=== PATIENT | male | born 1995 | race Caucasian/White ===

== ENCOUNTER 2017-09-22 20:30 | Inpatient (IN) | payer OTHER ==
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
[2017-09-22] MEDS ORDERED: TDAP ADULT 0.5 ML INJ (BOOSTRIX) IM ONE (20:51)
[2017-09-22] MEDS ORDERED: LET GEL TOPICAL 1 EA SYR TP ONE (20:51)
[2017-09-22] MEDS ORDERED: OLANZapine DISINTEGR 10 MG TAB ONE (21:29)
[2017-09-22] MEDS ORDERED: OLANZapine DISINTEGR 5 MG TAB PO ONE (21:29)
[2017-09-22 21:35] LABS: PLATELET COUNT 238 10^3/uL (150-400)
[2017-09-22] MEDS ORDERED: OLANZapine DISINTEGR 10 MG TAB PO ONE ×2 (21:37→22:59)
[2017-09-22] MEDS ORDERED: LORazepam 1 MG TAB ONE (22:38)
[2017-09-22] MEDS ORDERED: LORazepam 1 MG TAB PO ONE (22:59)
[2017-09-22] MEDS ORDERED: HYDROCODONE/APAP 5/325 TAB PO ONE (22:59)
[2017-09-23] MEDS ORDERED: LORazepam 1 MG TAB PO ONE (10:53)
--- NOTE | 2017-09-23 10:55 | ASMTTCLDSP ---
[facility] Discharge Disposition Disposition: Answers: Admit Disposition Notes: Notes: Pt will be admitted to [facility] unit. Was patient given the Answers: Yes Inpatient [facility] Prohibited Belongings List while in the ED? For inpatient admission, the following Adal Albert APN psychiatrist agreed to accept patient for admission to [facility] ([facility]): Type of Hold: Answers: M1/72-hour Hold Hold initiated by: Answers: Other Notes: [facility] Date Signed: 09/23/2017 10:55 AM Electronically Signed By:Jillian Rose
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
[2017-09-23] MEDS ORDERED: LORazepam 0.5 MG TAB PO PRN (13:37)
[2017-09-23] MEDS ORDERED: ALBUTEROL 60 PUFFS/8 GM MDI IH PRN (13:41)
[2017-09-23] MEDS: IBUPROFEN 200 MG TAB PO PRN (15:27)
[2017-09-23] MEDS: LORazepam 1 MG TAB PO ONE ×2 (15:27→18:09)
[2017-09-23] MEDS: ACETAMINOPHEN 325 MG TAB PO PRN (15:32)
[2017-09-23] MEDS ORDERED: OLANZapine DISINTEGR 10 MG TAB PO ONE (16:54)
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
[2017-09-23] MEDS: BACITRACIN OINTMENT 1 PACKET TP SCH (21:01)
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
[2017-09-24] MEDS: LORazepam 1 MG TAB PO PRN ×4 (00:45→21:38)
[2017-09-24] MEDS: IBUPROFEN 200 MG TAB PO PRN ×2 (07:00→16:38)
[2017-09-24] MEDS: ACETAMINOPHEN 325 MG TAB PO PRN ×4 (07:01→22:02)
[2017-09-24] MEDS: BACITRACIN OINTMENT 1 PACKET TP SCH ×2 (07:55→16:40)
[2017-09-24] MEDS: NICOTINE POLACRILEX 2 MG GUM B PRN ×7 (07:55→21:38)
[2017-09-24] MEDS ORDERED: OLANZapine DISINTEGR 10 MG TAB PO SCH (09:00)
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
--- NOTE | 2017-09-24 15:55 | ASMTBHDC ---
Notes Note: Notes: Patient is out on the milieu and participating in groups. He is taking his medications and slept 9 hours last night. Patient has grandiose thinking and believes that every minute he is in the hospital he is not out saving lives. Patient had been living with his parents and was kicked out due to his behavior. He said that he stayed with a friend this past week. He said that he can stay with his parents now. Date Signed: 09/24/2017 03:54 PM Electronically Signed By:Farrah Cifuentes
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
[2017-09-24] MEDS: OLANZapine DISINTEGR 10 MG TAB PO SCH (19:24)
[2017-09-24] MEDS: BACITRACIN OINTMENT 1 PACKET TP PRN (21:38)
[2017-09-25] MEDS: NICOTINE POLACRILEX 2 MG GUM B PRN ×5 (00:11→22:08)
[2017-09-25] MEDS: MAG HYDROX/AL HYDROX/SIMETH 30 ML UDCUP PO PRN ×2 (03:31→09:25)
[2017-09-25] MEDS: IBUPROFEN 200 MG TAB PO PRN ×3 (03:32→21:17)
[2017-09-25] MEDS: BACITRACIN OINTMENT 1 PACKET TP PRN ×3 (03:43→14:21)
[2017-09-25] MEDS: LORazepam 1 MG TAB PO PRN ×3 (04:03→16:09)
[2017-09-25] MEDS: ACETAMINOPHEN 325 MG TAB PO PRN ×3 (05:44→22:09)
[2017-09-25] MEDS ORDERED: NICOTINE 7 MG/24 HR PATCH TD SCH ×2 (09:00→13:27)
[2017-09-25] MEDS: MAGNESIUM HYDROXIDE 30 ML UDCUP PO PRN (09:25)
[2017-09-25] MEDS: ALBUTEROL 60 PUFFS/8 GM MDI IH PRN (09:45)
[2017-09-25] MEDS: OLANZapine 5 MG TAB PO PRN (13:52)
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
--- NOTE | 2017-09-25 15:16 | ASMTBHDC ---
Notes Note: Notes: Patient slept 5 hours last night. Patient wanted it noted that he is being polite, going to groups, and not talking fast. 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 He went on and became tearful, to say that "I only give to others, I have nothing." Patient said that he can not tolerate any mood stabilizers That he likes Ativan and Vivance. He continues to have pressured speech and has good hygiene. Date Signed: 09/25/2017 03:15 PM Electronically Signed By:Farrah Cifuentes
[2017-09-25] MEDS: OLANZapine DISINTEGR 10 MG TAB PO SCH (18:34)
[2017-09-26] MEDS: BACITRACIN OINTMENT 1 PACKET TP PRN ×4 (00:52→22:38)
[2017-09-26] MEDS: OLANZapine 5 MG TAB PO PRN ×2 (01:01→23:58)
[2017-09-26] MEDS: NICOTINE POLACRILEX 2 MG GUM B PRN ×2 (04:37→06:40)
[2017-09-26] MEDS: LORazepam 1 MG TAB PO PRN ×5 (06:39→21:59)
[2017-09-26] MEDS: ACETAMINOPHEN 325 MG TAB PO PRN ×2 (06:47→09:57)
[2017-09-26] MEDS: OLANZapine DISINTEGR 10 MG TAB PO SCH ×2 (09:57→20:55)
[2017-09-26] MEDS: IBUPROFEN 200 MG TAB PO PRN ×2 (09:59→22:38)
[2017-09-26] MEDS: MAG HYDROX/AL HYDROX/SIMETH 30 ML UDCUP PO PRN (10:00)
[2017-09-26] MEDS: MAGNESIUM HYDROXIDE 30 ML UDCUP PO PRN (10:01)
--- NOTE | 2017-09-26 10:55 | PDMN ---
Medical Necessity Medical necessity: [facility] [place] [id number], Bipolar Disorders, Adult: Inpatient Care, 4 days: M1 hold, bipolar 1 disorder, uncontrolled, current kevan, presenting w/ problems of grandiosity, high-risk behavior, high suicide risk.
--- NOTE | 2017-09-26 14:36 | SOAPPROG ---
SOAP Progress Note Assessment/Plan: Assessment: Bipolar I disorder. Current kevan. No improvement noted. (see subjective/ objective note). Patient could benefit from continued inpatient hospitalization for crisis stabilization, safety, and medication evaluation. Plan: Review psychotropic medication treatment informed consent and recommendations. After reviewing treatment options, risk and benefits of treatment, patient agrees to continue medications with the following changes: Zyprexa 10 mg po BID. No other medication changes at this time as more time is needed to determine ongoing tolerability and efficacy. Plan is to continue to observe patient for response and side effects from medications, and ongoing monitoring and evaluation. Before making any medication changes, this interviewer and rn primary care to confer with patients split leather mosser. Next steps are for patient to meet with resident care aide to plan a safe discharge plan and establish outpatient services for ongoing treatment. Consider discharge Tuesday if patient is in stable condition, safe, and has a safe discharge plan. PSYCHOTROPIC MEDICATION TREATMENT INFORMED CONSENT and RECOMMENDATIONS: Review nature of condition, diagnosis, and prognosis. Review nature and purpose of psychotropic medication treatment. Review type of psychotropic medications being ordered. Review risk and benefits of psychotropic medication treatment. Review probable length of time patient will need to take medications. Review risk and benefits of not undergoing psychotropic medication treatment. Review alternative treatments to psychotropic medications. Review psychotropic medications contraindications, drug-drug interactions, side effects, and importance of reporting any side effects to a psychiatric provider or nurse during inpatient hospitalization, and upon discharge to patients psychiatric outpatient provider, primary care provider, or other health home health care respiratory therapist. Review importance of asking a nurse, psychiatric provider, or primary care provider any questions or problems concerning the psychotropic medications. Verify patient understands the information that has been provided, and understands, accepts, and agrees to psychotropic medications. Review patients safety plan and importance of patient to report to staff while hospitalized if patient is ever a danger to self/others, or unable to care for self, and upon discharge, the importance for patient to contact [facility] or [facility], or go to the nearest emergency room, if patient is ever a danger to self/others, or unable to care for self. Recommend that upon discharge patient establish medication management treatment with a psychiatric provider, establishes routine therapy appointments, and follow-up with primary care provider. Verify patient understands and agrees to these recommendations. 09/26/17 14:34 Subjective: Following up with patient for evaluation of psychosis and safety. Patient reports, Man, I am doing awesome. Ready to discharge so I can start changing the world. Patient expresses the following psychiatric symptoms none, and reports has improved since admission. Patient states he is taking medications as prescribed, tolerating medications with no report of side effects. Patient states she has been attending groups. Patient describes having a difficult time sleeping last night because he has so much on his mind including all the goals he has to accomplish to change the world. The patient describes his appetite as good, and describes eating all meals. Patient reports his mood as awesome, perfect and states this is an improvement since admission. Patient denies SI/HI, A/V hallucinations, and delusions. Patient reports he has no idea why is still hospitalized, and states he is not sure why he would need to be on medications for any length of time. Objective: Vital Signs Temp Pulse Resp BP Pulse Ox 36.6 C 91 16 113/81 H 98 09/25/17 02:18 09/26/17 05:55 09/26/17 05:55 09/26/17 05:55 09/26/17 05:55 Treatment team report: Consulted with treatment team staff for update on patients progress in treatment. Nurses report patient is taking medications as prescribed with no report of side effects. Nurses report patient has expressed the following psychiatric symptoms none. Staff reports patient slept 3 hours last night. Patient is eating all meals. Patient denies SI/HI, A/V hallucinations, delusions, and has expressed no psychiatric symptoms since her admission. Staff reports they have noticed patient has not improved since his admission noting: decreased need for sleep, hyperactivity, hypertalkative, and grandiose. The patient is a well-nourished, well-developed, male, looking chronological age. Attire is appropriate, hospital garb, and is neat and clean. Grooming status is appropriate. Ambulation is independent. Gait is normal and coordinated. Posture is normal. Eye contact is excessive and staring. Motor activity is overactive. Attitude is uncooperative and defensive. Patient appears disinterested, distracted, and does not relate well to this interviewer. Language production is spontaneous. Rate is rapid, pressured. Latency of response is shortened, with irritable tone and inappropriate high volume, hypertalkative. Articulation is clear. Patient reports mood as awesome with expansive and inappropriate affect. Patients thought process is non-linear and illogical, with loose associations, tangential thought. Patient does not report suicidal/homicidal thoughts, ideas, or plans. Patient denies auditory, visual hallucinations. Patient denies delusions. Patient does not appear to be attending to internal stimuli. Patient is oriented to person, place, time, and situation. Attention and concentration are poor. Insight is poor. Judgment is impaired. No evidence of gross cognitive dysfunction at any point during the interview, and no evidence of apparent dysfunction in recent or remote memory noted. Patient does not report undesirable side effects from the medications. - Time Spent With Patient Time Spent With Patient: 30 minutes, met with patient individually. - Pending Discharge Pending Discharge Within 24 Hours: No Pending Discharge Within 48 Hours: No ICD10 Worksheet Patient Problems: Problems Problem Status Onset Bipolar 1 disorder, manic, moderate Acute Facial abrasion Acute Nasal bones, closed fracture Acute
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
[2017-09-26] MEDS: LITHIUM CARBONATE ER 300 MG TAB PO SCH (20:55)
[2017-09-26] MEDS ORDERED: LITHIUM CARBONATE ER 300 MG TAB PO SCH (21:00)
[2017-09-27] MEDS: MAG HYDROX/AL HYDROX/SIMETH 30 ML UDCUP PO PRN ×2 (04:17→19:14)
[2017-09-27] MEDS: MAGNESIUM HYDROXIDE 30 ML UDCUP PO PRN (04:17)
[2017-09-27] MEDS: LORazepam 1 MG TAB PO PRN ×2 (04:17→18:43)
[2017-09-27] MEDS: ACETAMINOPHEN 325 MG TAB PO PRN ×2 (04:22→13:19)
[2017-09-27] MEDS: NICOTINE 21 MG/24 HR PATCH TD SCH (04:23)
--- NOTE | 2017-09-27 08:13 | SOAPPROG ---
SOAP Progress Note Assessment/Plan: Assessment: Bipolar I Disorder. Current kevan. No improvement noted. (see subjective/ objective note). Patient could benefit from continued inpatient hospitalization for crisis stabilization, safety, and medication evaluation. Plan: Review psychotropic medication treatment informed consent and recommendations. After reviewing treatment options, risk and benefits of treatment, patient agrees to continue medications with the following changes. No medication changes at this time as more time is needed to determine ongoing tolerability and efficacy. Plan is to continue to observe patient for response and side effects from medications, and ongoing monitoring and evaluation. Before making any medication changes, this interviewer and director career to confer with patients station cook. Next steps are for patient to meet with day care attendant to plan a safe discharge plan and establish outpatient services for ongoing treatment. Consider discharge next week if patient is in stable condition, safe , and has a safe discharge plan. PSYCHOTROPIC MEDICATION TREATMENT INFORMED CONSENT and RECOMMENDATIONS: Review nature of condition, diagnosis, and prognosis. Review nature and purpose of psychotropic medication treatment. Review type of psychotropic medications being ordered. Review risk and benefits of psychotropic medication treatment. Review probable length of time patient will need to take medications. Review risk and benefits of not undergoing psychotropic medication treatment. Review alternative treatments to psychotropic medications. Review psychotropic medications contraindications, drug-drug interactions, side effects, and importance of reporting any side effects to a psychiatric provider or nurse during inpatient hospitalization, and upon discharge to patients psychiatric outpatient provider, primary care provider, or other health grounds caretaker. Review importance of asking a nurse, psychiatric provider, or primary care provider any questions or problems concerning the psychotropic medications. Verify patient understands the information that has been provided, and understands, accepts, and agrees to psychotropic medications. Review patients safety plan and importance of patient to report to staff while hospitalized if patient is ever a danger to self/others, or unable to care for self, and upon discharge, the importance for patient to contact [facility] [place] [facility] or [facility], or go to the nearest emergency room, if patient is ever a danger to self/others, or unable to care for self. Recommend that upon discharge patient establish medication management treatment with a psychiatric provider, establishes routine therapy appointments, and follow-up with primary care provider. Verify patient understands and agrees to these recommendations. 09/27/17 08:13 Subjective: Following up with patient for evaluation of psychosis and safety. Patient reports, Anxiety is really high. Patient expresses the following psychiatric symptoms none, and reports has improved since admission. Patient states he is taking medications as prescribed, tolerating medications with no report of side effects. Patient states she has been attending groups. Patient describes having a difficult time sleeping. The patient describes his appetite as good, and describes eating all meals. Patient reports his mood as chillin and states this is an improvement since admission. Patient denies SI/HI, A/V hallucinations, and delusions. Patient reports he has no idea why is still hospitalized, and states he is not sure why he would need to be on medications for any length of time. Patient requests Vyvanse to speed up his thoughts and make him not talk as fast. Patient states he took Vyvanse in college and it was beneficial getting good grades in school. 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 Patient states that video-graphic memory is better than photographic memory. Objective: Vital Signs Temp Pulse Resp BP Pulse Ox 36.4 C 92 16 127/73 H 92 09/27/17 04:37 09/27/17 04:37 09/27/17 04:37 09/27/17 04:37 09/27/17 04:37 Treatment team report: Consulted with treatment team staff for update on patients progress in treatment. Nurses report patient is taking medications as prescribed with no report of side effects. Nurses report patient has expressed the following psychiatric symptoms none. Staff reports patient slept 3 hours last night. Patient is eating all meals. Patient denies SI/HI, A/V hallucinations, delusions, and has expressed no psychiatric symptoms since her admission. Staff reports they have noticed patient has not improved since his admission noting: decreased need for sleep, hyperactivity, hypertalkative, and grandiose. The patient is a well-nourished, well-developed, male, looking chronological age. Attire is appropriate, hospital garb, and is neat and clean. Grooming status is appropriate. Ambulation is independent. Gait is normal and coordinated. Posture is normal. Eye contact is excessive and staring. Motor activity is overactive. Attitude is uncooperative and defensive. Patient appears disinterested, distracted, and does not relate well to this interviewer. Language production is spontaneous. Rate is rapid, pressured. Latency of response is shortened, with irritable tone and inappropriate high volume, hypertalkative. Articulation is clear. Patient reports mood as awesome with expansive and inappropriate affect. Patients thought process is non-linear and illogical, with loose associations, tangential thought. Patient does not report suicidal/homicidal thoughts, ideas, or plans. Patient denies auditory, visual hallucinations. Patient denies delusions. Patient does not appear to be attending to internal stimuli. Patient is oriented to person, place, time, and situation. Attention and concentration are poor. Insight is poor. Judgment is impaired. No evidence of gross cognitive dysfunction at any point during the interview, and no evidence of apparent dysfunction in recent or remote memory noted. Patient does not report undesirable side effects from the medications. - Time Spent With Patient Time Spent With Patient: 30 minutes, met with patient individually. - Pending Discharge Pending Discharge Within 24 Hours: No Pending Discharge Within 48 Hours: No ICD10 Worksheet Patient Problems: Problems Problem Status Onset Bipolar 1 disorder, manic, moderate Acute Facial abrasion Acute Nasal bones, closed fracture Acute
[2017-09-27] MEDS: LITHIUM CARBONATE ER 300 MG TAB PO SCH ×2 (08:25→18:39)
[2017-09-27] MEDS: BACITRACIN OINTMENT 1 PACKET TP PRN ×3 (08:25→18:01)
[2017-09-27] MEDS: OLANZapine DISINTEGR 10 MG TAB PO SCH ×2 (08:25→18:40)
[2017-09-27] MEDS: IBUPROFEN 200 MG TAB PO PRN (08:25)
[2017-09-27] MEDS ORDERED: LORazepam 1 MG TAB PO PRN ×3 (08:43→17:25)
[2017-09-27] MEDS ORDERED: LITHIUM CARBONATE ER 300 MG TAB PO SCH (09:00)
[2017-09-27] MEDS: ALBUTEROL 60 PUFFS/8 GM MDI IH PRN ×2 (13:19→18:45)
[2017-09-27] MEDS: NICOTINE POLACRILEX 2 MG GUM B PRN ×2 (13:20→17:52)
[2017-09-28] MEDS: ACETAMINOPHEN 325 MG TAB PO PRN ×2 (04:28→14:31)
[2017-09-28] MEDS: BACITRACIN OINTMENT 1 PACKET TP PRN ×4 (04:29→21:11)
[2017-09-28] MEDS: MAGNESIUM HYDROXIDE 30 ML UDCUP PO PRN (04:29)
[2017-09-28] MEDS: MAG HYDROX/AL HYDROX/SIMETH 30 ML UDCUP PO PRN ×2 (04:34→16:37)
[2017-09-28] MEDS: LORazepam 1 MG TAB PO PRN ×3 (06:15→16:37)
[2017-09-28] MEDS: NICOTINE 21 MG/24 HR PATCH TD SCH ×2 (07:07→14:32)
[2017-09-28] MEDS: LITHIUM CARBONATE ER 300 MG TAB PO SCH ×2 (08:41→19:39)
[2017-09-28] MEDS: OLANZapine DISINTEGR 10 MG TAB PO SCH ×2 (08:41→19:39)
--- NOTE | 2017-09-28 08:43 | SOAPPROG ---
SOAP Progress Note Assessment/Plan: Assessment: Bipolar I Disorder. Current kevan. No improvement noted. (see subjective/ objective note). Patient could benefit from continued inpatient hospitalization for crisis stabilization, safety, and medication evaluation. Plan: Review psychotropic medication treatment informed consent and recommendations. After reviewing treatment options, risk and benefits of treatment, patient agrees to continue medications with the following changes. No medication changes at this time as more time is needed to determine ongoing tolerability and efficacy. Plan is to continue to observe patient for response and side effects from medications, and ongoing monitoring and evaluation. 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 Next steps are for patient to meet with animal caretaker supervisor to plan a safe discharge plan and establish outpatient services for ongoing treatment. Consider discharge next week if patient is in stable condition, safe , and has a safe discharge plan. PSYCHOTROPIC MEDICATION TREATMENT INFORMED CONSENT and RECOMMENDATIONS: Review nature of condition, diagnosis, and prognosis. Review nature and purpose of psychotropic medication treatment. Review type of psychotropic medications being ordered. Review risk and benefits of psychotropic medication treatment. Review probable length of time patient will need to take medications. Review risk and benefits of not undergoing psychotropic medication treatment. Review alternative treatments to psychotropic medications. Review psychotropic medications contraindications, drug-drug interactions, side effects, and importance of reporting any side effects to a psychiatric provider or nurse during inpatient hospitalization, and upon discharge to patients psychiatric outpatient provider, primary care provider, or other health progressive care manager. Review importance of asking a nurse, psychiatric provider, or primary care provider any questions or problems concerning the psychotropic medications. Verify patient understands the information that has been provided, and understands, accepts, and agrees to psychotropic medications. Review patients safety plan and importance of patient to report to staff while hospitalized if patient is ever a danger to self/others, or unable to care for self, and upon discharge, the importance for patient to contact [place] [facility] or 1, or go to the nearest emergency room, if patient is ever a danger to self/others, or unable to care for self. Recommend that upon discharge patient establish medication management treatment with a psychiatric provider, establishes routine therapy appointments, and follow-up with primary care provider. Verify patient understands and agrees to these recommendations. 09/28/17 08:43 Subjective: Following up with patient for evaluation of kevan and safety. Patient reports, "Feel like I have improved exponentially since I've been here. Mentally I feel like this is a 180 flip compared to being at [facility] a year ago, it is much better here. You guys are involving me in my treatment. You guys dont just jam pills down my throat you allow me to have a say in my treatment." Patient expresses the following psychiatric symptoms none, and reports has improved since admission. Patient states he is taking medications as prescribed, tolerating medications with no report of side effects. Patient states she has been attending groups. Patient describes sleeping well last night, 9 hours. The patient describes his appetite as good, and describes eating all meals. Patient reports his mood as absolutely fantastic and states this is an improvement since admission. Patient denies SI/HI, A/V hallucinations, and delusions. Patient reports he has no idea why is still hospitalized as he feels completely normal. Patient reports he has no problem discharging homeless. Patient describes he can live out of backpack because he has video- graphic memory. Patient states all he needs is a backpack and 3 liters of water. Patient states he wouldn't be homeless, he would be "home free." Objective: Vital Signs Temp Pulse Resp BP Pulse Ox 36.6 C 101 H 16 122/57 H 96 09/28/17 06:00 09/28/17 06:00 09/28/17 06:00 09/28/17 06:00 09/28/17 06:00 Treatment team report: Consulted with treatment team staff for update on patients progress in treatment. Nurses report patient is taking medications as prescribed with no report of side effects. Nurses report patient has expressed the following psychiatric symptoms none. Staff reports patient slept 4 hours last night. Patient is eating all meals. Patient denies SI/HI, A/V hallucinations, delusions, and has expressed no psychiatric symptoms since his admission. Staff reports they have noticed patient has not improved since his admission noting: decreased need for sleep, hyperactivity, hypertalkative, and grandiose. The patient is a well-nourished, well-developed, male, looking chronological age. Attire is appropriate, hospital garb, and is neat and clean. Grooming status is appropriate. Ambulation is independent. Gait is normal and coordinated. Posture is normal. Eye contact is excessive and staring. Motor activity is overactive. Attitude is cooperative and friendly. Patient appears distracted, and does not relate well to this interviewer. Language production is spontaneous. Rate is rapid, pressured. Latency of response is shortened, with irritable tone and inappropriate high volume, hypertalkative. Articulation is clear. Patient reports mood as absolutely fantastic with expansive and inappropriate affect. Patients thought process is non-linear and illogical, with loose associations, tangential thought. Patient does not report suicidal/homicidal thoughts, ideas, or plans. Patient denies auditory, visual hallucinations. Patient denies delusions. Patient does not appear to be attending to internal stimuli. Patient is oriented to person, place, time, and situation. Attention and concentration are poor. Insight is poor. Judgment is impaired. No evidence of gross cognitive dysfunction at any point during the interview, and no evidence of apparent dysfunction in recent or remote memory noted. Patient does not report undesirable side effects from the medications. - Time Spent With Patient Time Spent With Patient: 30 minutes, met with patient individually. - Pending Discharge Pending Discharge Within 24 Hours: No Pending Discharge Within 48 Hours: No ICD10 Worksheet Patient Problems: Problems Problem Status Onset Bipolar 1 disorder, manic, moderate Acute Facial abrasion Acute Nasal bones, closed fracture Acute
[2017-09-28] MEDS: NICOTINE POLACRILEX 2 MG GUM B PRN ×2 (09:05→19:19)
[2017-09-28] MEDS: ALBUTEROL 60 PUFFS/8 GM MDI IH PRN ×2 (12:04→19:19)
[2017-09-28] MEDS: OLANZapine 5 MG TAB PO PRN (14:37)
[2017-09-29] MEDS: ALBUTEROL 60 PUFFS/8 GM MDI IH PRN ×3 (05:02→18:53)
[2017-09-29] MEDS: MAG HYDROX/AL HYDROX/SIMETH 30 ML UDCUP PO PRN ×2 (05:02→20:59)
[2017-09-29] MEDS: ACETAMINOPHEN 325 MG TAB PO PRN ×4 (05:02→18:53)
[2017-09-29] MEDS: NICOTINE 21 MG/24 HR PATCH TD SCH (08:30)
[2017-09-29] MEDS: OLANZapine DISINTEGR 10 MG TAB PO SCH ×2 (08:31→18:54)
[2017-09-29] MEDS: LITHIUM CARBONATE ER 300 MG TAB PO SCH ×2 (08:32→18:54)
[2017-09-29] MEDS: BACITRACIN OINTMENT 1 PACKET TP PRN ×2 (08:48→18:54)
[2017-09-29] MEDS: NICOTINE POLACRILEX 2 MG GUM B PRN ×5 (08:54→20:09)
--- NOTE | 2017-09-29 08:56 | SOAPPROG ---
SOAP Progress Note Assessment/Plan: Assessment: Bipolar I Disorder. Current kevan. Slight improvement noted. (see subjective/ objective note). Patient could benefit from continued inpatient hospitalization for crisis stabilization, safety, and medication evaluation. Plan: Review psychotropic medication treatment informed consent and recommendations. After reviewing treatment options, risk and benefits of treatment, patient agrees to continue medications with the following changes. No medication changes at this time as more time is needed to determine ongoing tolerability and efficacy. [place] level to be drawn 09/30/17 at 0600. Plan is to continue to observe patient for response and side effects from medications, and ongoing monitoring and evaluation. Before making any medication changes, this interviewer and women's health care nurse practitioner to confer with patients railroad purchasing agent. Next steps are for patient to meet with day care home provider to plan a safe discharge plan and establish outpatient services for ongoing treatment. Consider discharge next week if patient is in stable condition, safe, and has a safe discharge plan. PSYCHOTROPIC MEDICATION TREATMENT INFORMED CONSENT and RECOMMENDATIONS: Review nature of condition, diagnosis, and prognosis. Review nature and purpose of psychotropic medication treatment. Review type of psychotropic medications being ordered. Review risk and benefits of psychotropic medication treatment. Review probable length of time patient will need to take medications. Review risk and benefits of not undergoing psychotropic medication treatment. Review alternative treatments to psychotropic medications. Review psychotropic medications contraindications, drug-drug interactions, side effects, and importance of reporting any side effects to a psychiatric provider or nurse during inpatient hospitalization, and upon discharge to patients psychiatric outpatient provider, primary care provider, or other health animal care taker. Review importance of asking a nurse, psychiatric provider, or primary care provider any questions or problems concerning the psychotropic medications. Verify patient understands the information that has been provided, and understands, accepts, and agrees to psychotropic medications. Review patients safety plan and importance of patient to report to staff while hospitalized if patient is ever a danger to self/others, or unable to care for self, and upon discharge, the importance for patient to contact [place] [facility] or [facility], or go to the nearest emergency room, if patient is ever a danger to self/others, or unable to care for self. Recommend that upon discharge patient establish medication management treatment with a psychiatric provider, establishes routine therapy appointments, and follow-up with primary care provider. Verify patient understands and agrees to these recommendations. 09/29/17 08:55 Subjective: Following up with patient for evaluation of kevan and safety. Patient reports, "I woke up today feeling the most mental clarity ever, felt like I have been on a roller coaster in my mind the last two years, and finally feeling better. Thought I could do this alone, but now realize I need medications. Was always against lithium, but now realize I need to be on it." Patient expresses the following psychiatric symptoms none, and reports has improved since admission and states, "I am stable and completely ready to go." Patient states he is taking medications as prescribed, tolerating medications with no report of side effects. Patient states she has been attending groups. Patient describes sleeping well last night, 9 hours. The patient describes his appetite as good, and describes eating all meals. Patient reports his mood as "completely at peace" and states this is an improvement since admission. Patient denies SI/HI , A/V hallucinations, and delusions. 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 States he already has contacts in [place] including Traci Phelan. Patient reports that every minute he is in here another life is not being saved , and he wants to get out of here and change the world. Patient states this interviewer is talking to someone that is about to be famous. 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 He reports he can do all of this because he has a video-graphic memory. Objective: Vital Signs Temp Pulse Resp BP Pulse Ox 36.3 C 87 14 128/77 H 96 09/29/17 05:55 09/29/17 05:55 09/29/17 05:55 09/29/17 05:55 09/29/17 05:55 Treatment team report: Consulted with treatment team staff for update on patients progress in treatment. Nurses report patient is taking medications as prescribed with no report of side effects. Nurses report patient has expressed the following psychiatric symptoms none. Staff reports patient slept 7 hours last night. Patient is eating all meals. Patient denies SI/HI, A/V hallucinations, delusions, and has expressed no psychiatric symptoms since his admission. Staff reports they have noticed patient has improved since his admission noting: improved sleep. Patient continues to be hyperactive, hypertalkative, and grandiose. The patient is a well-nourished, well-developed, male, looking chronological age. Attire is appropriate, hospital garb, and is neat and clean. Grooming status is appropriate. Ambulation is independent. Gait is normal and coordinated. Posture is normal. Eye contact is excessive and staring. Motor activity is overactive. Attitude is cooperative and friendly. Patient appears distracted, and does not relate well to this interviewer. Language production is spontaneous. Rate is rapid, pressured. Latency of response is shortened, with irritable tone and inappropriate high volume, hypertalkative. Articulation is clear. Patient reports mood as completely at peace with expansive and inappropriate affect. Patients thought process is non-linear and illogical, with loose associations, tangential thought. Patient does not report suicidal/homicidal thoughts, ideas, or plans. Patient denies auditory, visual hallucinations. Patient denies delusions. Patient does not appear to be attending to internal stimuli. Patient is oriented to person, place, time, and situation. Attention and concentration are poor. Insight is poor. Judgment is impaired. No evidence of gross cognitive dysfunction at any point during the interview, and no evidence of apparent dysfunction in recent or remote memory noted. Patient does not report undesirable side effects from the medications. - Time Spent With Patient Time Spent With Patient: 30 minutes, met with patient individually. - Pending Discharge Pending Discharge Within 24 Hours: No Pending Discharge Within 48 Hours: No ICD10 Worksheet Patient Problems: Problems Problem Status Onset Bipolar 1 disorder, manic, moderate Acute Facial abrasion Acute Nasal bones, closed fracture Acute
[2017-09-29] MEDS: LORazepam 1 MG TAB PO PRN ×3 (10:07→20:09)
[2017-09-29] MEDS: OLANZapine 5 MG TAB PO PRN (11:24)
--- NOTE | 2017-09-29 14:25 | ASMTBHDC ---
Notes Note: Notes: CC was able to confirm follow up appts with out-side provider (PCP) for meds. Dr. Filiberto Bailon (PCP) [address] [place] [address] [phone] Follow up Appt: October 06 at 1:30pm Additionally, sent over referral for out-patient therapy via [facility]; waiting to hear back with Appointment time and date, etc. Client presents as manic, engectic with rapid speach. CC will re evaulte tomorrow. Probable discharge early next week. Date Signed: 09/29/2017 02:24 PM Electronically Signed By:Maximiliano Birch
[2017-09-30] MEDS: ALBUTEROL 60 PUFFS/8 GM MDI IH PRN ×3 (05:04→14:48)
[2017-09-30] MEDS: BACITRACIN OINTMENT 1 PACKET TP PRN ×4 (05:04→19:58)
[2017-09-30] MEDS: ACETAMINOPHEN 325 MG TAB PO PRN ×4 (05:04→18:37)
[2017-09-30] MEDS: MAG HYDROX/AL HYDROX/SIMETH 30 ML UDCUP PO PRN ×3 (05:05→18:38)
[2017-09-30] MEDS: NICOTINE POLACRILEX 2 MG GUM B PRN ×6 (06:06→20:31)
[2017-09-30] MEDS: LITHIUM CARBONATE ER 300 MG TAB PO SCH ×2 (07:54→19:58)
[2017-09-30] MEDS: OLANZapine 5 MG TAB PO PRN ×2 (07:54→11:37)
[2017-09-30] MEDS: NICOTINE 21 MG/24 HR PATCH TD SCH (07:54)
[2017-09-30] MEDS: OLANZapine DISINTEGR 10 MG TAB PO SCH ×2 (07:55→19:58)
[2017-09-30] MEDS: LORazepam 1 MG TAB PO PRN ×4 (08:00→21:11)
--- NOTE | 2017-09-30 11:50 | SOAPPROG ---
SOAP Progress Note Assessment/Plan: Assessment: Bipolar I Disorder. Current kevan. Slight improvement noted. (see subjective/ objective note). Patient could benefit from continued inpatient hospitalization for crisis stabilization, safety, and medication evaluation. Plan: Review psychotropic medication treatment informed consent and recommendations. After reviewing treatment options, risk and benefits of treatment, patient agrees to continue medications with the following changes: increase [place] HS to 900 mg. [place] level ordered for Tuesday 06. No other medication changes at this time as more time is needed to determine ongoing tolerability and efficacy. Plan is to continue to observe patient for response and side effects from medications, and ongoing monitoring and evaluation. Before making any medication changes, this interviewer and animal daycare provider to confer with patients junior bookkeeper. Next steps are for patient to meet with intensive care anaesthetist to plan a safe discharge plan and establish outpatient services for ongoing treatment. Consider discharge next week if patient is in stable condition, safe , and has a safe discharge plan. PSYCHOTROPIC MEDICATION TREATMENT INFORMED CONSENT and RECOMMENDATIONS: Review nature of condition, diagnosis, and prognosis. Review nature and purpose of psychotropic medication treatment. Review type of psychotropic medications being ordered. Review risk and benefits of psychotropic medication treatment. Review probable length of time patient will need to take medications. Review risk and benefits of not undergoing psychotropic medication treatment. Review alternative treatments to psychotropic medications. Review psychotropic medications contraindications, drug-drug interactions, side effects, and importance of reporting any side effects to a psychiatric provider or nurse during inpatient hospitalization, and upon discharge to patients psychiatric outpatient provider, primary care provider, or other health child care aide. Review importance of asking a nurse, psychiatric provider, or primary care provider any questions or problems concerning the psychotropic medications. Verify patient understands the information that has been provided, and understands, accepts, and agrees to psychotropic medications. Review patients safety plan and importance of patient to report to staff while hospitalized if patient is ever a danger to self/others, or unable to care for self, and upon discharge, the importance for patient to contact [facility] [place] [facility] or [facility], or go to the nearest emergency room, if patient is ever a danger to self/others, or unable to care for self. Recommend that upon discharge patient establish medication management treatment with a psychiatric provider, establishes routine therapy appointments, and follow-up with primary care provider. Verify patient understands and agrees to these recommendations. 09/30/17 11:49 Subjective: Following up with patient for evaluation of kevna and safety. Patient reports, "Starting to feel slowed down, don't like that feeling." Patient expresses the following psychiatric symptoms none, and reports has improved since admission and states, "feel like my life has completely flipped." Patient states he is taking medications as prescribed, tolerating medications with no report of side effects. Patient states she has been attending groups. Patient describes sleeping well last night, 9 hours. The patient describes his appetite as good, and describes eating all meals. Patient reports his mood as "chillaxed" and states this is an improvement since admission. Patient denies SI/HI, A/V hallucinations, and delusions. 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 Plans to be to [place] by end of summer, link up with connections in [place] (Traci Phelan, assistant store manager of [email or web address]). 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 States he can sing every single music genre. 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 Patient states the [facility] has contacted him and asked him to the Batman for the [facility], and states that [place] has agreed to equip him with all the tools and gadget he needs to be the Batman and go around and fight crime in the [facility]. Objective: Vital Signs Temp Pulse Resp BP Pulse Ox 36.5 C 106 H 12 127/64 H 96 09/30/17 06:00 09/30/17 06:00 09/30/17 06:00 09/30/17 06:00 09/30/17 06:00 Treatment team report: Consulted with treatment team staff for update on patients progress in treatment. Nurses report patient is taking medications as prescribed with no report of side effects. Nurses report patient has expressed the following psychiatric symptoms none. Staff reports patient slept 6 hours last night. Patient is eating all meals. Patient denies SI/HI, A/V hallucinations, delusions, and has expressed no psychiatric symptoms since his admission. Staff reports they have noticed patient has improved since his admission noting: improved sleep. Patient continues to be hyperactive, hypertalkative, and grandiose. The patient is a well-nourished, well-developed, male, looking chronological age. Attire is appropriate, hospital garb, and is neat and clean. Grooming status is appropriate. Ambulation is independent. Gait is normal and coordinated. Posture is normal. Eye contact is excessive and staring. Motor activity is overactive. Attitude is cooperative and friendly. Patient appears distracted, and does not relate well to this interviewer. Language production is spontaneous. Rate is rapid, pressured. Latency of response is shortened, with irritable tone and inappropriate high volume, hypertalkative. Articulation is clear. Patient reports mood as completely at peace with expansive and inappropriate affect. Patients thought process is non-linear and illogical, with loose associations, tangential thought. Patient does not report suicidal/homicidal thoughts, ideas, or plans. Patient denies auditory, visual hallucinations. Patient denies delusions. Patient does not appear to be attending to internal stimuli. Patient is oriented to person, place, time, and situation. Attention and concentration are poor. Insight is poor. Judgment is impaired. No evidence of gross cognitive dysfunction at any point during the interview, and no evidence of apparent dysfunction in recent or remote memory noted. Patient does not report undesirable side effects from the medications. - Time Spent With Patient Time Spent With Patient: 30 minutes, met with patient individually. - Pending Discharge Pending Discharge Within 24 Hours: No Pending Discharge Within 48 Hours: No ICD10 Worksheet Patient Problems: Problems Problem Status Onset Bipolar 1 disorder, manic, moderate Acute Facial abrasion Acute Nasal bones, closed fracture Acute
[2017-09-30] MEDS ORDERED: LITHIUM CARBONATE ER 300 MG TAB PO SCH (21:00)
[2017-10-01] MEDS: ALBUTEROL 60 PUFFS/8 GM MDI IH PRN ×2 (05:28→13:28)
[2017-10-01] MEDS: ACETAMINOPHEN 325 MG TAB PO PRN ×2 (05:29→20:07)
[2017-10-01] MEDS: BACITRACIN OINTMENT 1 PACKET TP PRN (05:30)
[2017-10-01] MEDS: LORazepam 1 MG TAB PO PRN ×4 (05:31→16:53)
[2017-10-01] MEDS: MAG HYDROX/AL HYDROX/SIMETH 30 ML UDCUP PO PRN ×2 (05:31→05:48)
[2017-10-01] MEDS: NICOTINE POLACRILEX 2 MG GUM B PRN ×3 (07:32→13:28)
[2017-10-01] MEDS: OLANZapine DISINTEGR 10 MG TAB PO SCH ×2 (08:06→20:06)
[2017-10-01] MEDS: LITHIUM CARBONATE ER 300 MG TAB PO SCH ×2 (08:06→20:06)
[2017-10-01] MEDS: NICOTINE 21 MG/24 HR PATCH TD SCH (08:07)
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
[2017-10-02] MEDS: MAG HYDROX/AL HYDROX/SIMETH 30 ML UDCUP PO PRN ×2 (03:23→10:28)
[2017-10-02] MEDS: LORazepam 1 MG TAB PO PRN ×3 (03:24→19:06)
[2017-10-02] MEDS: ACETAMINOPHEN 325 MG TAB PO PRN ×3 (03:24→16:14)
[2017-10-02] MEDS: NICOTINE POLACRILEX 2 MG GUM B PRN ×5 (03:25→16:15)
[2017-10-02] MEDS: ALBUTEROL 60 PUFFS/8 GM MDI IH PRN ×2 (03:28→08:42)
[2017-10-02] MEDS: BACITRACIN OINTMENT 1 PACKET TP PRN (04:28)
[2017-10-02] MEDS: LITHIUM CARBONATE ER 300 MG TAB PO SCH ×2 (08:32→17:39)
[2017-10-02] MEDS: OLANZapine DISINTEGR 10 MG TAB PO SCH ×2 (08:33→19:06)
[2017-10-02] MEDS: NICOTINE 21 MG/24 HR PATCH TD SCH (08:33)
--- NOTE | 2017-10-02 14:57 | ASMTBHDC ---
Notes Note: Notes: Pt. reports feeling "fantastic". Pt. reports no odd behaviors like the previous night. Pt. stated he doesn't want to take Zyprexa any more. Pt. stated he believes he is having erectile dysfunction issues due to the Zyprexa. Pt. stated he believes he will be discharged tomorrow, adding he knows his [place] is at a therapeutic level now. Pt. stated he dropped one dose of [place] due to not being awake when RN gave it to him a few nights ago. Pt. stated about discharge he "feels clam, at peace, and ready to go back into the world as a man". Pt. stated he plans to live with a friend in [place] until October 16, when his "soulmate" will turns 18 and then they will go on a road trip to [place]. Pt. stated he would not give CC his friend's address, without CC asking for it. Pt. stated he plans to get a dog, because "on October 15 at 5:30 in the morning I complete my spiritual exercise and am no longer allergic to dogs". Pt. denied SI, HI, AVH and paranoia. Staff report pt. sleeping 5.5 hours and a [place] pill was found in pt's room today. Date Signed: 10/02/2017 02:56 PM Electronically Signed By:Maryam Lehman
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
[2017-10-03] MEDS: ACETAMINOPHEN 325 MG TAB PO PRN ×3 (02:56→17:46)
[2017-10-03] MEDS: NICOTINE POLACRILEX 2 MG GUM B PRN ×5 (05:05→20:28)
[2017-10-03] MEDS: LITHIUM CARBONATE ER 300 MG TAB PO SCH ×2 (07:38→20:27)
[2017-10-03] MEDS: NICOTINE 21 MG/24 HR PATCH TD SCH (07:38)
[2017-10-03] MEDS: OLANZapine DISINTEGR 10 MG TAB PO SCH (07:39)
[2017-10-03] MEDS ORDERED: LORazepam 1 MG TAB PO PRN (07:41)
--- NOTE | 2017-10-03 08:17 | SOAPPROG ---
SOAP Progress Note Assessment/Plan: Assessment: Bipolar I Disorder. Current kevan. Slight improvement noted. (see subjective/ objective note). Patient continues to present with S/S of kevan notably hyperactivity and grandiosity. Patient is currently not stable, and requires inpatient level of care. Patient could benefit from continued inpatient hospitalization for crisis stabilization, safety, and medication evaluation. Plan: Review psychotropic medication treatment informed consent and recommendations. After reviewing treatment options, risk and benefits of treatment, patient agrees to continue medications with the following changes: Decrease Ativan to 1 mg po Q8HRS PRN for agitation / benzo taper in preparation of discharge this week. No other medication changes at this time as more time is needed to determine ongoing tolerability and efficacy. Plan is to continue to observe patient for response and side effects from medications, and ongoing monitoring and evaluation. Next steps are for patient to meet with career counselor to plan a safe discharge plan and establish outpatient services for ongoing treatment. Consider discharge Tuesday if patient is in stable condition, safe, and has a safe discharge plan. PSYCHOTROPIC MEDICATION TREATMENT INFORMED CONSENT and RECOMMENDATIONS: Review nature of condition, diagnosis, and prognosis. Review nature and purpose of psychotropic medication treatment. Review type of psychotropic medications being ordered. Review risk and benefits of psychotropic medication treatment. Review probable length of time patient will need to take medications. Review risk and benefits of not undergoing psychotropic medication treatment. Review alternative treatments to psychotropic medications. Review psychotropic medications contraindications, drug-drug interactions, side effects, and importance of reporting any side effects to a psychiatric provider or nurse during inpatient hospitalization, and upon discharge to patients psychiatric outpatient provider, primary care provider, or other health health care marketing manager. Review importance of asking a nurse, psychiatric provider, or primary care provider any questions or problems concerning the psychotropic medications. Verify patient understands the information that has been provided, and understands, accepts, and agrees to psychotropic medications. Review patients safety plan and importance of patient to report to staff while hospitalized if patient is ever a danger to self/others, or unable to care for self, and upon discharge, the importance for patient to contact [place] [facility] or [facility], or go to the nearest emergency room, if patient is ever a danger to self/others, or unable to care for self. Recommend that upon discharge patient establish medication management treatment with a psychiatric provider, establishes routine therapy appointments, and follow-up with primary care provider. Verify patient understands and agrees to these recommendations. 10/03/17 08:17 10/03/17 08:19 Subjective: Following up with patient for evaluation of kevan and safety. Patient reports, "For the first time in two years I feel stable, calm, collected, and feel myself again." Patient expresses the following psychiatric symptoms none, and reports he has improved since admission. Patient states he is taking medications as prescribed, tolerating medications with no report of side effects. Patient states she has been attending groups. Patient describes sleeping well last night, 7 hours. The patient describes his appetite as good, and describes eating all meals. Patient reports his mood as "calm" and states this is an improvement since admission. Patient denies SI/HI, A/V hallucinations, and delusions. 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 Patient reports his family is already famous, but he wants to become famous by himself rather than using his family's famous ties and image. Patient reports in 11 years plans he plans to be run for governor of [place], and wants to run for [facility] [employer] first before he runs for President of the . Objective: Vital Signs Temp Pulse Resp BP Pulse Ox 36.3 C 79 18 109/56 L 97 10/03/17 06:00 10/03/17 06:00 10/03/17 06:00 10/03/17 06:00 10/03/17 06:00 Treatment team report: Consulted with treatment team staff for update on patients progress in treatment. Nurses report a lithium tablet was found in his room on Tuesday night, and this has occurred twice over the last week. Nurses state patient reported these tablets are from the first night he was administered lithium and states he was tired and the tablets fell out of his mouth. It is questionable whether patient is taking lithium as prescribed, and lithium lab draw this AM to determine. Nurses report patient has expressed the following psychiatric symptoms none. Staff reports patient slept 7 hours last night. Patient is eating all meals. Patient denies SI/HI, A/V hallucinations, delusions, and has expressed no psychiatric symptoms since his admission. Staff reports they have noticed patient has improved since his admission noting : improved sleep. Patient continues to be hyperactive, hypertalkative, and grandiose. The patient is a well-nourished, well-developed, male, looking chronological age. Attire is appropriate, hospital garb, and is neat and clean. Grooming status is appropriate. Ambulation is independent. Gait is normal and coordinated. Posture is normal. Eye contact is excessive and staring. Motor activity is overactive. Attitude is cooperative and friendly. Patient is attentive and relates well to this interviewer. Language production is spontaneous. Rate is rapid, pressured. Latency of response is shortened, with irritable tone and inappropriate high volume, hypertalkative in amount. Articulation is clear. Patient reports mood as calm with expansive and inappropriate affect. Patients thought process is grandiose and tangential. Patient does not report suicidal/homicidal thoughts, ideas, or plans. Patient denies auditory, visual hallucinations. Patient denies delusions. Patient does not appear to be attending to internal stimuli. Patient is oriented to person, place, time, and situation. Attention and concentration are poor. Insight is poor. Judgment is impaired. No evidence of gross cognitive dysfunction at any point during the interview, and no evidence of apparent dysfunction in recent or remote memory noted. Patient does not report undesirable side effects from the medications. - Time Spent With Patient Time Spent With Patient: 25 minutes, met with patient individually. - Pending Discharge Pending Discharge Within 24 Hours: No Pending Discharge Within 48 Hours: No ICD10 Worksheet Patient Problems: Problems Problem Status Onset Bipolar 1 disorder, manic, moderate Acute Facial abrasion Acute Nasal bones, closed fracture Acute
[2017-10-03] MEDS: LORazepam 1 MG TAB PO PRN ×2 (08:38→18:36)
[2017-10-03] MEDS: OLANZapine 5 MG TAB PO PRN (11:53)
[2017-10-03] MEDS ORDERED: OLANZapine 5 MG TAB PO PRN (12:48)
[2017-10-03] MEDS: MAG HYDROX/AL HYDROX/SIMETH 30 ML UDCUP PO PRN (17:46)
[2017-10-03] MEDS ORDERED: OLANZapine DISINTEGR 5 MG TAB PO SCH (21:00)
[2017-10-04] MEDS: MAG HYDROX/AL HYDROX/SIMETH 30 ML UDCUP PO PRN ×2 (04:10→14:13)
[2017-10-04] MEDS: ACETAMINOPHEN 325 MG TAB PO PRN ×3 (04:34→15:58)
[2017-10-04] MEDS: LITHIUM CARBONATE ER 300 MG TAB PO SCH ×2 (07:40→19:12)
[2017-10-04] MEDS: OLANZapine DISINTEGR 10 MG TAB PO SCH (07:40)
[2017-10-04] MEDS: NICOTINE 21 MG/24 HR PATCH TD SCH (07:40)
[2017-10-04] MEDS: LORazepam 1 MG TAB PO PRN (07:41)
[2017-10-04] MEDS: NICOTINE POLACRILEX 2 MG GUM B PRN ×5 (10:28→15:59)
--- NOTE | 2017-10-04 10:29 | SOAPPROG ---
SOAP Progress Note Assessment/Plan: Assessment: Bipolar I Disorder. Current kevan. Improving (see subjective/objective note). Patient continues to present with S/S of kevan notably hyperactivity and grandiosity. Patient is currently not stable, and requires inpatient level of care. Patient could benefit from continued inpatient hospitalization for crisis stabilization, safety, and medication evaluation. Plan: Review psychotropic medication treatment informed consent and recommendations. After reviewing treatment options, risk and benefits of treatment, patient agrees to continue medications with the following changes: Zyprexa Zydis 20 mg po QHS and discontinue Zyprexa Zydis 5 mg po QD PRN. Goal is to discharge patient on Zyprexa 20 mg po QHS and [facility] ER 600 mg po QAM and 900 mg po QHS. No other medication changes at this time as more time is needed to determine ongoing tolerability and efficacy. [place] level ordered for Tuesday 0600. Plan is to continue to observe patient for response and side effects from medications, and ongoing monitoring and evaluation. Next steps are for patient to meet with lawn caretaker to plan a safe discharge plan and establish outpatient services for ongoing treatment. Consider discharge Tuesday if patient is in stable condition, safe, and has a safe discharge plan. PSYCHOTROPIC MEDICATION TREATMENT INFORMED CONSENT and RECOMMENDATIONS: Review nature of condition, diagnosis, and prognosis. Review nature and purpose of psychotropic medication treatment. Review type of psychotropic medications being ordered. Review risk and benefits of psychotropic medication treatment. Review probable length of time patient will need to take medications. Review risk and benefits of not undergoing psychotropic medication treatment. Review alternative treatments to psychotropic medications. Review psychotropic medications contraindications, drug-drug interactions, side effects, and importance of reporting any side effects to a psychiatric provider or nurse during inpatient hospitalization, and upon discharge to patients psychiatric outpatient provider, primary care provider, or other health wild animal caretaker. Review importance of asking a nurse, psychiatric provider, or primary care provider any questions or problems concerning the psychotropic medications. Verify patient understands the information that has been provided, and understands, accepts, and agrees to psychotropic medications. Review patients safety plan and importance of patient to report to staff while hospitalized if patient is ever a danger to self/others, or unable to care for self, and upon discharge, the importance for patient to contact [facility] or [facility], or go to the nearest emergency room, if patient is ever a danger to self/others, or unable to care for self. Recommend that upon discharge patient establish medication management treatment with a psychiatric provider, establishes routine therapy appointments, and follow-up with primary care provider. Verify patient understands and agrees to these recommendations. 10/04/17 10:28 Subjective: Following up with patient for evaluation of kevan and safety. Patient reports, "Accepting where I am, ready to go back in the world, but in a sense, enjoying these last few days here to better stabilize." Patient expresses the following psychiatric symptoms none, and reports he has improved since admission. Patient states he is taking medications as prescribed, tolerating medications with no report of side effects. Patient states she has been attending groups. Patient describes sleeping well last night, 8 hours. The patient describes his appetite as good, and describes eating all meals. Patient reports his mood as peaceful and states this is an improvement since admission. Patient denies SI/ HI, A/V hallucinations, and delusions. 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 Patient states this will be a road trip to [place] to meet up with his girlfriends friends who are famous [employer] bloggers. Patient states that maybe he will get famous too has a [employer] blogger. Patient states he plans to either stay in [place] or come back to [place]. Objective: Vital Signs Temp Pulse Resp BP Pulse Ox 36.3 C 99 16 120/70 97 10/04/17 06:00 10/04/17 06:00 10/04/17 06:00 10/04/17 06:00 10/04/17 06:00 Treatment team report: Consulted with treatment team staff for update on patients progress in treatment. Nurses report patient is taking medications as prescribed. Nurses report patient has expressed the following psychiatric symptoms none. Staff reports patient slept 7 hours last night. Patient is eating all meals. Patient denies SI/HI, A/V hallucinations, delusions, and has expressed no psychiatric symptoms since his admission. Staff reports they have noticed patient has improved since his admission noting: improved sleep. Patient continues to be hyperactive, hypertalkative, and grandiose. The patient is a well-nourished, well-developed, male, looking chronological age. Attire is appropriate, hospital garb, and is neat and clean. Grooming status is appropriate. Ambulation is independent. Gait is normal and coordinated. Posture is normal. Eye contact is excessive and staring. Motor activity is overactive. Attitude is cooperative and friendly. Patient is attentive and relates well to this interviewer. Language production is spontaneous. Rate is rapid, pressured. Latency of response is shortened, with irritable tone and inappropriate high volume, hypertalkative in amount. Articulation is clear. Patient reports mood as peaceful with expansive and inappropriate affect. Patients thought process is grandiose and tangential. Patient does not report suicidal/homicidal thoughts, ideas, or plans. Patient denies auditory, visual hallucinations. Patient denies delusions. Patient does not appear to be attending to internal stimuli. Patient is oriented to person, place, time, and situation. Attention and concentration are adequate. Insight is fair. Judgment is fair. No evidence of gross cognitive dysfunction at any point during the interview, and no evidence of apparent dysfunction in recent or remote memory noted. Patient does not report undesirable side effects from the medications. - Time Spent With Patient Time Spent With Patient: 20 minutes, met with patient individually. - Pending Discharge Pending Discharge Within 24 Hours: No Pending Discharge Within 48 Hours: No ICD10 Worksheet Patient Problems: Problems Problem Status Onset Bipolar 1 disorder, manic, moderate Acute Facial abrasion Acute Nasal bones, closed fracture Acute
[2017-10-04] MEDS: ALBUTEROL 60 PUFFS/8 GM MDI IH PRN ×2 (11:43→15:59)
[2017-10-04] MEDS ORDERED: LORazepam 1 MG TAB PO PRN (13:46)
--- NOTE | 2017-10-04 14:57 | ASMTBHDC ---
Notes Note: Notes: CC reached out to MOC at ; spoke in depth regarding client's afer-care. CC requested poss. family meeting for or Tuesday with potential discharge Tuesday. MOC noted, we can do but don't know what time, "I will have to call you back." Provided all necessary follow up information regarding return contact and follow up, listed below; CC will call back PCP to switch appointment time/date. Follow up with: Dr. Filiberto Bailon (PCP) [address] [address] Follow up Appt: October 06 at 1:30pm [facility] [address] [place], [place] [id number] Ribera[address] [address] Intake Appt: TuesdayOctober 18 (10/18/17) @10:45am Date Signed: 10/04/2017 02:56 PM Electronically Signed By:Maximiliano Birch
[2017-10-04] MEDS: GABAPENTIN 400 MG CAP PO SCH ×4 (15:15→19:16)
[2017-10-04] MEDS: OLANZapine DISINTEGR 5 MG TAB PO SCH (19:17)
[2017-10-05] MEDS: ACETAMINOPHEN 325 MG TAB PO PRN ×4 (05:10→20:45)
[2017-10-05] MEDS: ALBUTEROL 60 PUFFS/8 GM MDI IH PRN ×3 (05:11→12:38)
[2017-10-05] MEDS: NICOTINE POLACRILEX 2 MG GUM B PRN ×3 (06:15→12:31)
[2017-10-05] MEDS: MAG HYDROX/AL HYDROX/SIMETH 30 ML UDCUP PO PRN (08:15)
[2017-10-05] MEDS: NICOTINE 21 MG/24 HR PATCH TD SCH (08:15)
[2017-10-05] MEDS: GABAPENTIN 400 MG CAP PO SCH (08:17)
[2017-10-05] MEDS: OLANZapine DISINTEGR 10 MG TAB PO SCH (08:17)
[2017-10-05] MEDS: LITHIUM CARBONATE ER 300 MG TAB PO SCH ×2 (08:18→18:00)
[2017-10-05] MEDS ORDERED: LORazepam 1 MG TAB PO PRN (08:37)
[2017-10-05] MEDS ORDERED: GABAPENTIN 400 MG CAP PO SCH (09:00)
[2017-10-05] MEDS: GABAPENTIN 300 MG CAP PO SCH ×3 (10:38→20:45)
--- NOTE | 2017-10-05 11:34 | SOAPPROG ---
SOAP Progress Note Assessment/Plan: Assessment: Bipolar I Disorder. Current kevan. Improving (see subjective/objective note). Patient continues to present with S/S of kevan notably hyperactivity and grandiosity. Patient is currently not stable, and requires inpatient level of care. Patient could benefit from continued inpatient hospitalization for crisis stabilization, safety, and medication evaluation. Plan: Review psychotropic medication treatment informed consent and recommendations. After reviewing treatment options, risk and benefits of treatment, patient agrees to continue medications with the following changes: lower Ativan to 1 mg po Q8HRS and increase Gabapentin to 600 mg po TID. No other medication changes at this time as more time is needed to determine ongoing tolerability and efficacy. [place] level ordered for 599. Discuss importance of patient keeping consistent fluid intake. Order the following to r/o polydipsia : urine sodium, urine specific gravity, urine osmolality, BMP to be drawn 599 with lithium. Plan is to continue to observe patient for response and side effects from medications, and ongoing monitoring and evaluation. Next steps are for patient to meet with clinical manager home care to plan a safe discharge plan and establish outpatient services for ongoing treatment. Consider discharge Tuesday if patient is in stable condition, safe, and has a safe discharge plan. PSYCHOTROPIC MEDICATION TREATMENT INFORMED CONSENT and RECOMMENDATIONS: Review nature of condition, diagnosis, and prognosis. Review nature and purpose of psychotropic medication treatment. Review type of psychotropic medications being ordered. Review risk and benefits of psychotropic medication treatment. Review probable length of time patient will need to take medications. Review risk and benefits of not undergoing psychotropic medication treatment. Review alternative treatments to psychotropic medications. Review psychotropic medications contraindications, drug-drug interactions, side effects, and importance of reporting any side effects to a psychiatric provider or nurse during inpatient hospitalization, and upon discharge to patients psychiatric outpatient provider, primary care provider, or other health post acute care registered nurse. Review importance of asking a nurse, psychiatric provider, or primary care provider any questions or problems concerning the psychotropic medications. Verify patient understands the information that has been provided, and understands, accepts, and agrees to psychotropic medications. Review patients safety plan and importance of patient to report to staff while hospitalized if patient is ever a danger to self/others, or unable to care for self, and upon discharge, the importance for patient to contact [facility] or [facility], or go to the nearest emergency room, if patient is ever a danger to self/others, or unable to care for self. Recommend that upon discharge patient establish medication management treatment with a psychiatric provider, establishes routine therapy appointments, and follow-up with primary care provider. Verify patient understands and agrees to these recommendations. 10/05/17 11:33 Subjective: Following up with patient for evaluation of kevan and safety. Patient reports, "Feel stable and ready to discharge." Patient expresses the following psychiatric symptoms none, and reports he has improved since admission. Patient states he is taking medications as prescribed, tolerating medications with no report of side effects. Patient states she has been attending groups. Patient describes sleeping well last night, 9 hours. The patient describes his appetite as good, and describes eating all meals. Patient reports his mood as "10" and states this is an improvement since admission. Patient denies SI/HI, A /V hallucinations, and delusions. 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 Patient reports he plans to travel to [place] in mid-October with his girlfriend. He states in [place] they plan to meet up with his girlfriends friends that are famous YouTubers. Patient states his goal is to also become famous on [employer]. Patient describes future goals to become President of the [employer] within 11.5 years. Objective: Vital Signs Temp Pulse Resp BP Pulse Ox 36.3 C 76 14 116/69 97 10/04/17 06:00 10/05/17 06:00 10/05/17 06:00 10/05/17 06:00 10/05/17 06:00 Treatment team report: Consulted with treatment team staff for update on patients progress in treatment. Nurses report patient is taking medications as prescribed. Nurses report patient has expressed the following psychiatric symptoms none. Staff reports patient slept 7 hours last night. Patient is eating all meals. Patient denies SI/HI, A/V hallucinations, delusions, and has expressed no psychiatric symptoms since his admission. Staff reports they have noticed patient has improved since his admission noting: improved sleep, less hyperactive, less hypertalkative, and no less grandiose. The patient is a well-nourished, well-developed, male, looking chronological age. Attire is appropriate, hospital garb, and is neat and clean. Grooming status is appropriate. Ambulation is independent. Gait is normal and coordinated. Posture is normal. Eye contact is excessive and staring. Motor activity is overactive. Attitude is cooperative and friendly. Patient is attentive and relates well to this interviewer. Language production is spontaneous. Rate if pressured. R/V are normal. Articulation is clear. Patient reports mood as 10 with expansive affect. Patients thought process is linear and logical, less grandiose and no longer tangential. Patient does not report suicidal/homicidal thoughts, ideas, or plans. Patient denies auditory, visual hallucinations. Patient denies delusions. Patient does not appear to be attending to internal stimuli. Patient is oriented to person, place, time, and situation. Attention and concentration are adequate. Insight is fair. Judgment is fair. No evidence of gross cognitive dysfunction at any point during the interview, and no evidence of apparent dysfunction in recent or remote memory noted. Patient does not report undesirable side effects from the medications. - Time Spent With Patient Time Spent With Patient: 30 minutes, met with patient individually. - Pending Discharge Pending Discharge Within 24 Hours: No Pending Discharge Within 48 Hours: Yes Pending Discharge Date: 10/07/17 Pending Discharge Time: 11:00 ICD10 Worksheet Patient Problems: Problems Problem Status Onset Bipolar 1 disorder, manic, moderate Acute Facial abrasion Acute Nasal bones, closed fracture Acute
[2017-10-05] MEDS: OLANZapine DISINTEGR 5 MG TAB PO SCH (20:03)
[2017-10-05] MEDS ORDERED: OLANZapine DISINTEGR 5 MG TAB PO SCH (21:30)
[2017-10-06] MEDS: MAG HYDROX/AL HYDROX/SIMETH 30 ML UDCUP PO PRN ×2 (03:11→08:33)
[2017-10-06] MEDS: NICOTINE POLACRILEX 2 MG GUM B PRN ×4 (03:52→13:59)
[2017-10-06] MEDS: LITHIUM CARBONATE ER 300 MG TAB PO SCH (08:34)
[2017-10-06] MEDS: GABAPENTIN 300 MG CAP PO SCH ×3 (08:35→20:17)
[2017-10-06] MEDS ORDERED: OLANZapine DISINTEGR 5 MG TAB PO SCH (08:37)
--- NOTE | 2017-10-06 08:43 | SOAPPROG ---
SOAP Progress Note Assessment/Plan: Assessment: Bipolar I Disorder. Current kevan (see subjective/objective note). Patients presentation (s/s) have worsened since yesterday. Patient continues to present with S/S of kevan notably hyperactivity and grandiosity. Patient is currently not stable, and requires inpatient level of care. Patient could benefit from continued inpatient hospitalization for crisis stabilization, safety, and medication evaluation. Plan: Review psychotropic medication treatment informed consent and recommendations. After reviewing treatment options, risk and benefits of treatment, patient agrees to continue medications with the following changes: discontinue Ativan. No other medication changes at this time as more time is needed to determine ongoing tolerability and efficacy. [place] level drawn this AM, awaiting results. Plan is to continue to observe patient for response and side effects from medications, and ongoing monitoring and evaluation. Next steps are for patient to meet with care asst to plan a safe discharge plan and establish outpatient services for ongoing treatment. Consider discharge Tuesday if patient is in stable condition, safe, and has a safe discharge plan. PSYCHOTROPIC MEDICATION TREATMENT INFORMED CONSENT and RECOMMENDATIONS: Review nature of condition, diagnosis, and prognosis. Review nature and purpose of psychotropic medication treatment. Review type of psychotropic medications being ordered. Review risk and benefits of psychotropic medication treatment. Review probable length of time patient will need to take medications. Review risk and benefits of not undergoing psychotropic medication treatment. Review alternative treatments to psychotropic medications. Review psychotropic medications contraindications, drug-drug interactions, side effects, and importance of reporting any side effects to a psychiatric provider or nurse during inpatient hospitalization, and upon discharge to patients psychiatric outpatient provider, primary care provider, or other health care trainer. Review importance of asking a nurse, psychiatric provider, or primary care provider any questions or problems concerning the psychotropic medications. Verify patient understands the information that has been provided, and understands, accepts, and agrees to psychotropic medications. Review patients safety plan and importance of patient to report to staff while hospitalized if patient is ever a danger to self/others, or unable to care for self, and upon discharge, the importance for patient to contact [facility] or [facility], or go to the nearest emergency room, if patient is ever a danger to self/others, or unable to care for self. Recommend that upon discharge patient establish medication management treatment with a psychiatric provider, establishes routine therapy appointments, and follow-up with primary care provider. Verify patient understands and agrees to these recommendations. 10/06/17 08:44 Subjective: Following up with patient for evaluation of kevan and safety. Patient reports, "Feeling great. I feel fantastic." Patient expresses the following psychiatric symptoms none, and states, "I feel so good, I feel like crying." Patient states he is taking medications as prescribed, tolerating medications with no report of side effects. Patient states he has been attending groups. Patient describes sleeping well last night, although states he did wake-up several times, but still describes his sleep as "awesome." The patient describes his appetite as good, and describes eating all meals. Patient reports his mood as "stable, excited, and awesome" and states this is an improvement since admission. Patient denies SI/HI, A/V hallucinations, and delusions. Patient describes summer plans as taking a trip to [place] with his girlfriend in October. Patient states their plans are to meet-up with his girlfriend's friends in [place] who are famous Youtubers, then his goal is to become a famous Stone [employer] as well. 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 Patient describes having plans to also start several business ventures with a plan to end all poverty. Patient describes his plan to end poverty by buying apartment complexes to provide all homeless people a place to stay. 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 Patient states he has the ability to do all these things, including running for President in 11.5 years, because was blessed with his grandfather's video-graphic memory. Patient states because of his video- graphic memory, he has obtained all the skills of the characters in movies he has watched. Objective: Vital Signs Temp Pulse Resp BP Pulse Ox 36.3 C 69 16 114/88 H 100 10/06/17 06:00 10/06/17 06:00 10/06/17 06:00 10/06/17 06:00 10/06/17 06:00 Treatment team report: Consulted with treatment team staff for update on patients progress in treatment. Nurses report patient is taking medications as prescribed. Nurses report patient has expressed the following psychiatric symptoms none. Staff reports patient slept 6 hours last night. Patient is eating all meals. Patient denies SI/HI, A/V hallucinations, delusions, and has expressed no psychiatric symptoms since his admission. Staff reports patient has decompensated since yesterday notably decreased need for sleep, hyperactivity, pressured speech, tangential, and grandiose Update: Patient presents with increased pressured speech, tangential, and grandiose. Patient talked non-stop during interview and had to be interrupted and re-directed several times. The patient is a well-nourished, well-developed, male, looking chronological age. Attire is appropriate, hospital garb, and is neat and clean. Grooming status is appropriate. Ambulation is independent. Gait is normal and coordinated. Posture is tense, sitting at edge of seat. Eye contact is excessive and staring. Motor activity is overactive, unable to sit still. Attitude is cooperative. Patient is attentive and relates well to this interviewer. Language production is spontaneous. Rate if pressured and volume is high. Articulation is clear. Patient reports mood as stable, excited, and awesome with expansive, inappropriate affect. Patients thought process is non- linear and illogical, grandiose, and tangential. Patient does not report suicidal/homicidal thoughts, ideas, or plans. Patient denies auditory, visual hallucinations. Patient denies delusions; however, his grandiose thoughts are delusional. Patient does not appear to be attending to internal stimuli. Patient is oriented to person, place, time. Attention and concentration are adequate. Insight is poor. Judgment is poor. No evidence of gross cognitive dysfunction at any point during the interview, and no evidence of apparent dysfunction in recent or remote memory noted. Patient does not report undesirable side effects from the medications. - Time Spent With Patient Time Spent With Patient: 25 minutes, met with patient individually. - Pending Discharge Pending Discharge Within 24 Hours: No Pending Discharge Within 48 Hours: No ICD10 Worksheet Patient Problems: Problems Problem Status Onset Bipolar 1 disorder, manic, moderate Acute Facial abrasion Acute Nasal bones, closed fracture Acute
[2017-10-06] MEDS: ACETAMINOPHEN 325 MG TAB PO PRN ×2 (08:46→20:17)
[2017-10-06] MEDS: NICOTINE 21 MG/24 HR PATCH TD SCH (11:00)
--- NOTE | 2017-10-06 11:36 | ASMTBHDC ---
Notes Note: Notes: CC spoke to MOC for a while regarding scheduling a family meeting, etc. MOC suggest tomorrow at 11am works the best for them, this proposal lead writer can pass along to provider. Additionally, MOC noted, "I think he is ready to go tomorrow, I don't think he should stay there any longer and we would like to have him discharge tomorrow into our care." CC will pass along this information to Provider. Date Signed: 10/06/2017 11:35 AM Electronically Signed By:Maximiliano Birch
[2017-10-06] MEDS: ALBUTEROL 60 PUFFS/8 GM MDI IH PRN (12:07)
[2017-10-06] MEDS ORDERED: DIVALPROEX ER 250 MG TAB PO SCH (14:00)
[2017-10-06] MEDS ORDERED: DIVALPROEX ER 500 MG TAB PO SCH ×2 (14:00→21:00)
[2017-10-06] MEDS: OLANZapine DISINTEGR 5 MG TAB PO SCH (20:16)
[2017-10-07] MEDS: ACETAMINOPHEN 325 MG TAB PO PRN ×2 (02:35→11:55)
[2017-10-07] MEDS: GABAPENTIN 300 MG CAP PO SCH ×2 (06:04→11:54)
[2017-10-07] MEDS ORDERED: OLANZapine DISINTEGR 5 MG TAB PO SCH (07:35)
--- NOTE | 2017-10-07 07:55 | SOAPPROG ---
SOAP Progress Note Assessment/Plan: Assessment: Bipolar I Disorder. Current kevan, slight improvement noted. (see subjective/ objective note). Patients presentation (s/s) have improved since yesterday. Patient continues to present with S/S of kevan notably hyperactivity and grandiosity. Patient is currently not stable, and requires inpatient level of care. Patient could benefit from continued inpatient hospitalization for crisis stabilization, safety, and medication evaluation. Currently undergoing a switch in mood stabilizers with switch from lithium to Depakote with level on Tuesday. Plan: Review psychotropic medication treatment informed consent and recommendations. After reviewing treatment options, risk and benefits of treatment, patient agrees to continue medications with the following changes: lower Zyprexa Zydis AM to 5 mg. No other medication changes at this time as more time is needed to determine ongoing tolerability and efficacy. Depakote level on Tuesday Plan is to continue to observe patient for response and side effects from medications, and ongoing monitoring and evaluation. Next steps are for patient to meet with skin care consultant to plan a safe discharge plan and establish outpatient services for ongoing treatment. Consider discharge Tuesday if patient is in stable condition, safe, and has a safe discharge plan. PSYCHOTROPIC MEDICATION TREATMENT INFORMED CONSENT and RECOMMENDATIONS: Review nature of condition, diagnosis, and prognosis. Review nature and purpose of psychotropic medication treatment. Review type of psychotropic medications being ordered. Review risk and benefits of psychotropic medication treatment. Review probable length of time patient will need to take medications. Review risk and benefits of not undergoing psychotropic medication treatment. Review alternative treatments to psychotropic medications. Review psychotropic medications contraindications, drug-drug interactions, side effects, and importance of reporting any side effects to a psychiatric provider or nurse during inpatient hospitalization, and upon discharge to patients psychiatric outpatient provider, primary care provider, or other health personal caregiver. Review importance of asking a nurse, psychiatric provider, or primary care provider any questions or problems concerning the psychotropic medications. Verify patient understands the information that has been provided, and understands, accepts, and agrees to psychotropic medications. Review patients safety plan and importance of patient to report to staff while hospitalized if patient is ever a danger to self/others, or unable to care for self, and upon discharge, the importance for patient to contact [facility] or [facility], or go to the nearest emergency room, if patient is ever a danger to self/others, or unable to care for self. Recommend that upon discharge patient establish medication management treatment with a psychiatric provider, establishes routine therapy appointments, and follow-up with primary care provider. Verify patient understands and agrees to these recommendations. 10/07/17 07:56 Subjective: Following up with patient for evaluation of kevan and safety. Patient reports, Patient states he feels stable. Patient states he had a good conversation last night when his dad came in for a visit. Patient states he is taking medications as prescribed, tolerating medications with no report of side effects. Patient states she has been attending groups. Patient describes sleeping well last night, but woke up a few times throughout the night. Patient reports he slept 9 hours last night. The patient describes his appetite as good, and describes eating all meals. Patient reports his mood as stable and states this is an improvement since admission. Patient denies SI/HI , A/V hallucinations, and delusions. Patient describes plans after discharge go for a bike ride, and then go home with this parents and start planning next steps for his life including finding employment, and finding a place to live in [place]. Patient requests prescription of Vyvanse and states he would rather get a prescription for it than buy it on the street. Patient states he would take this medication as needed. Objective: Vital Signs Temp Pulse Resp BP Pulse Ox 36.6 C 90 16 124/61 H 96 10/07/17 06:00 10/07/17 06:00 10/07/17 06:00 10/07/17 06:00 10/07/17 06:00 Laboratory Results 10/06/17 06:30 Treatment team report: Consulted with treatment team staff for update on patients progress in treatment. Nurses report patient is taking medications as prescribed. Nurses report patient has expressed the following psychiatric symptoms none. Staff reports patient slept 7 hours last night. Patient is eating all meals. Patient denies SI/HI, A/V hallucinations, delusions, and has expressed no psychiatric symptoms since his admission. Staff reports patient has improved since yesterday notably improved sleep, less hyperactivity, decreased pressured speech, less tangential, and less grandiose. The patient is a well-nourished, well-developed, male, looking chronological age. Attire is appropriate, hospital garb, and is neat and clean. Grooming status is appropriate. Ambulation is independent. Gait is normal and coordinated. Posture is tense, sitting at edge of seat. Eye contact is excessive and staring. Motor activity is overactive, unable to sit still. Attitude is cooperative. Patient is attentive and relates well to this interviewer. Language production is spontaneous. R/R/V normal. Articulation is clear. Patient reports mood as stable with congruent affect. Patients thought process is linear and logical, less grandiose, and less tangential compared to yesterday. Patient does not report suicidal/homicidal thoughts, ideas, or plans. Patient denies auditory, visual hallucinations. Patient denies delusions and does not report any delusions today regarding his plans after discharge. Patient does not appear to be attending to internal stimuli. Patient is oriented to person, place, time, and situation. Attention and concentration are adequate. Insight is improved. Judgment is poor. No evidence of gross cognitive dysfunction at any point during the interview, and no evidence of apparent dysfunction in recent or remote memory noted. Patient does not report undesirable side effects from the medications. - Time Spent With Patient Time Spent With Patient: 20 minutes, met with patient individually. - Pending Discharge Pending Discharge Within 24 Hours: No Pending Discharge Within 48 Hours: No ICD10 Worksheet Patient Problems: Problems Problem Status Onset Bipolar 1 disorder, manic, moderate Acute Facial abrasion Acute Nasal bones, closed fracture Acute
[2017-10-07] MEDS: DIVALPROEX ER 250 MG TAB PO SCH (08:08)
[2017-10-07] MEDS: NICOTINE POLACRILEX 2 MG GUM B PRN ×4 (08:15→13:16)
[2017-10-07] MEDS: NICOTINE 21 MG/24 HR PATCH TD SCH (08:16)
[2017-10-07] MEDS: ALBUTEROL 60 PUFFS/8 GM MDI IH PRN (11:55)
[2017-10-07] MEDS: GABAPENTIN 400 MG CAP PO SCH ×2 (15:32→20:03)
[2017-10-07] MEDS: OLANZapine DISINTEGR 5 MG TAB PO SCH (20:01)
[2017-10-07] MEDS: DIVALPROEX ER 500 MG TAB PO SCH (20:02)
[2017-10-08] MEDS: GABAPENTIN 400 MG CAP PO SCH ×4 (05:41→20:05)
[2017-10-08] MEDS: NICOTINE POLACRILEX 2 MG GUM B PRN ×9 (06:08→21:07)
[2017-10-08] MEDS: MAG HYDROX/AL HYDROX/SIMETH 30 ML UDCUP PO PRN ×2 (06:08→13:05)
[2017-10-08] MEDS: ACETAMINOPHEN 325 MG TAB PO PRN ×2 (06:08→09:28)
[2017-10-08] MEDS: ALBUTEROL 60 PUFFS/8 GM MDI IH PRN ×2 (06:09→09:29)
[2017-10-08] MEDS: NICOTINE 21 MG/24 HR PATCH TD SCH (08:08)
[2017-10-08] MEDS: DIVALPROEX ER 250 MG TAB PO SCH (08:09)
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
[2017-10-08] MEDS: DIVALPROEX ER 500 MG TAB PO SCH (20:03)
[2017-10-08] MEDS: OLANZapine DISINTEGR 5 MG TAB PO SCH (20:05)
[2017-10-09] MEDS: MAG HYDROX/AL HYDROX/SIMETH 30 ML UDCUP PO PRN ×2 (04:51→19:29)
[2017-10-09] MEDS: NICOTINE POLACRILEX 2 MG GUM B PRN ×5 (04:51→15:33)
[2017-10-09] MEDS: ACETAMINOPHEN 325 MG TAB PO PRN ×3 (04:52→19:29)
[2017-10-09] MEDS: GABAPENTIN 400 MG CAP PO SCH ×4 (04:52→19:28)
[2017-10-09] MEDS: ALBUTEROL 60 PUFFS/8 GM MDI IH PRN ×3 (06:39→19:29)
[2017-10-09] MEDS: BACITRACIN OINTMENT 1 PACKET TP PRN (08:35)
[2017-10-09] MEDS: DIVALPROEX ER 250 MG TAB PO SCH (08:36)
[2017-10-09] MEDS: NICOTINE 21 MG/24 HR PATCH TD SCH (10:25)
--- NOTE | 2017-10-09 13:09 | ASMTBHDC ---
Notes Note: Notes: Patient is pleasant and engaging and he continues to appears hypomanic and grandiouse in this thinking. He spoke of his plan to join the [employer] team and that he typically bikes 200-300 miles per week. When asked his plans upon discharging from the inpatient unit, patient indicated he will go for a bike ride. Date Signed: 10/08/2017 01:18 PM Electronically Signed By:Brandy Marin
--- NOTE | 2017-10-09 14:12 | ASMTBHDC ---
Notes Note: Notes: Patient continues to appear hypomanic, grandiose and he seems to have difficulty sitting/standing still. Patient indicated difficulty with standing still due to "fracturing his knees 17 days ago" and that they are now healed. Patient continues to display little/no insight into his illness. Date Signed: 10/08/2017 01:21 PM Electronically Signed By:Brandy Marin
[2017-10-09] MEDS: OLANZapine DISINTEGR 5 MG TAB PO SCH (19:29)
[2017-10-09] MEDS: DIVALPROEX ER 500 MG TAB PO SCH (19:29)
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
[2017-10-10] MEDS: ALBUTEROL 60 PUFFS/8 GM MDI IH PRN (05:14)
[2017-10-10] MEDS: ACETAMINOPHEN 325 MG TAB PO PRN (05:14)
[2017-10-10] MEDS: MAG HYDROX/AL HYDROX/SIMETH 30 ML UDCUP PO PRN (05:14)
[2017-10-10] MEDS: GABAPENTIN 400 MG CAP PO SCH ×2 (05:56→11:33)
[2017-10-10 06:33] VITALS: BP 138/69
[2017-10-10] MEDS: DIVALPROEX ER 250 MG TAB PO SCH (07:24)
[2017-10-10] MEDS: NICOTINE 21 MG/24 HR PATCH TD SCH (08:27)
--- NOTE | 2017-10-10 11:08 | ASMTBHDC ---
Notes Note: Notes: CC spoke to client briefly before discharge. Client presents more stable than previous days. Client denies any feelings of S/I-H/I, AVH, depression and/or anxiety. Pt presents as hyper verbal, excited as well as displaying a pleasant demeanor Client was released into his parents care with all necessary follow up information etc. Follow up with: Dr. Filiberto Bailon (PCP) [address] [place] [address] Follow up Appt: TuesdayOctober 11 (10/11/17) at 5:15pm [facility], [facility] [address] [place] [address] Intake Appt: TuesdayOctober 18 (10/18/17) @10:45am Date Signed: 10/10/2017 11:08 AM Electronically Signed By:Maximiliano Birch
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
== END 2017-10-10 11:50 | disposition home or self-care (01) | DRG 885 ==
LOC: EDUNIT# → BBEH 09-23 13:03
PROVIDERS: ADMIT Registered Nurse; ATTEND Registered Nurse
DX: F31.13 Bipolar disorder, current episode manic without psychotic features, severe (principal); S02.2XXA Fracture of nasal bones, initial encounter for closed fracture; S00.81XA Abrasion of other part of head, initial encounter; V18.0XXA Pedal cycle driver injured in noncollision transport accident in nontraffic accident, initial encounter; Y93.55 Activity, bike riding; Y92.481 Parking lot as the place of occurrence of the external cause; Y99.8 Other external cause status; R40.2411 Glasgow coma scale score 13-15, in the field [EMT or ambulance]; Z88.0 Allergy status to penicillin; Z23 Encounter for immunization
CPT/HCPCS: 80305; G0480